=== PATIENT | male | born 1985 | race Caucasian/White ===

== ENCOUNTER 2017-06-07 18:55 | Emergency (ER) | payer MEDICAID ==
[~2017-06-07] VITALS: Ht 172.7 cm; Wt 89.1 kg
[2017-06-07 18:56] VITALS: Ht 172.7 cm; Wt 89.1 kg
[2017-06-07 19:11] VITALS: TEMP 99.9
[2017-06-07 19:25] LABS: BASOPHILS % 0.3 % (0.0-2.0); EOSINOPHILS % 0.1 % (0.0-7.0); HEMOGLOBIN 16.9 g/dl (14.0-18.0); LYMPHOCYTES # 2.5 10^3/ul (0.8-2.9); LYMPHOCYTES % 17.7 % (15.0-51.0); MEAN CORPUSCULAR HEMOGLOBIN 29.9 pg (29.0-33.0); MEAN CORPUSCULAR HGB CONC 35.2 g/dl (32.0-37.0); MEAN PLATELET VOLUME 10.6 fl (7.4-10.4); MONOCYTE # 1.4 10^3/ul (0.3-0.9); MONOCYTES % 9.6 % (0.0-11.0); NEUTROPHIL # 10.1 10^3/ul (1.6-7.5); NEUTROPHILS % 71.9 % (39.0-77.0); PLATELET COUNT 335 10^3/UL (140-415); RED BLOOD COUNT 5.65 10^6/ul (4.70-6.10); RED CELL DISTRIBUTION WIDTH 12.8 % (11.5-14.5); WHITE BLOOD COUNT 14.1 10^3/ul (4.8-10.8)
[2017-06-07] MEDS ORDERED: LORAZEPAM 2 MG INJ IV ONE (19:30)
[2017-06-07 19:42] LABS: INR 1.04; PARTIAL THROMBOPLASTIN TIME 27.5 Sec (25.0-35.0); PROTIME 13.6 Sec (12.2-14.2); PT RATIO 1.1
--- NOTE | 2017-06-07 19:43 | RADRPT ---
PROCEDURE: XR Chest AP portable CLINICAL INDICATION: Chest pain TECHNIQUE: An AP portable radiograph of the chest was submitted. COMPARISON: None. FINDINGS: Support Hardware: None Cardiovascular: The cardiovascular silhouette appears unremarkable. Lung Cadet: The lung cadet appear clear with no nodule, alveolar infiltrate, or interstitial promi nence evident. Pleural Spaces: No pneumothorax or pleural effusion is identified. Osseous Structures: The osseous structures appear intact. Soft Tissues: The soft tissues appear generous. IMPRESSION: Unremarkable portable chest. Physician Charlotte Date Time Electronically viewed and signed by Monica Orozco Physician on 06/07/2017 19:43 RH/
[2017-06-07 19:45] LABS: ANION GAP 26 (8-16); BLOOD UREA NITROGEN 15 mg/dl (7-20); CARBON DIOXIDE 21 mmol/L (21-31); CHLORIDE 101 mmol/L (97-110); CREATININE 1.21 mg/dl (0.61-1.24); GLUCOSE 157 mg/dl (70-220); POTASSIUM 3.2 mmol/L (3.5-5.1); SODIUM 145 mmol/L (135-144)
[2017-06-07 19:58] LABS: TROPONIN-I < 0.012 ng/ml (0.00-0.12)
[2017-06-07] MEDS ORDERED: POTASSIUM CHLORIDE (SR) 20 MEQ TAB PO STA (20:03)
--- NOTE | 2017-06-07 20:14 | ERD ---
ER Documentation Chief Complaint Date/Time DATE: 06/07/17 TIME: 20:12 Chief Complaint states he got stung by something c/o increase SOB HPI This is a 32-year-old male who presents to the emergency room for evaluation of shortness of breath. The patient states that he got stung by something and states that he is short of breath and is having numbness all over his body. The patient denies having any previous medical history was brought to the ER by his family for evaluation. ROS All systems reviewed and are negative except as per history of present illness. Physical Exam Vitals Vital Signs Date Time Temp Pulse Resp B/P Pulse Ox O2 Delivery O2 Flow Rate FiO2 06/07/17 19:46 108 28 155/108 100 Non Rebreather 15.0 06/07/17 19:11 99.9 118 26 165/97 100 Mask 06/07/17 19:05 Non Rebreather 15 06/07/17 19:05 Non Rebreather 15.0 06/07/17 18:56 98.7 128 32 179/109 99 Physical Exam INITIAL VITAL SIGNS: Reviewed by me GENERAL: The patient is well developed and appropriate for usual state of health in no apparent distress HEENT: Pupils equal, round, and reactive to light. EOMI. There is no scleral icterus. NECK: C-spine is soft and supple, there is no meningismus. There is no cervical lymphadenopathy. LUNGS: Clear to auscultation bilaterally. There are no rales, wheezes or rhonchi. HEART: Regular rate and rhythm, no murmurs, clicks, rubs or gallops. ABDOMEN: Soft, non-tender, non-distended. There are bowel sounds in all four quadrants. No rebound or guarding. EXTREMITIES: There is no peripheral cyanosis or edema. No focal swelling or erythema. NEUROLOGICAL: The patient moves all four extremities with 5/5 strength. Cranial nerves II - XII are intact. Normal gait. Alert and oriented SKIN: There is no apparent rash or petechiae. HEME/LYMPHATIC: There is no evidence of excessive bruising or lymphedema. PSYCHIATRIC: The patient appears extremely anxious and agitated Result Diagram: 06/07/17191406/07/171914 Results 24 hrs Laboratory Tests Test 06/07/17 19:15 White Blood Count 14.110^3/ul Red Blood Count 5.6510^6/ul Hemoglobin 16.9g/dl Hematocrit 48.0% Mean Corpuscular Volume 85.0fl Mean Corpuscular Hemoglobin 29.9pg Mean Corpuscular Hemoglobin Concent 35.2g/dl Red Cell Distribution Width 12.8% Platelet Count 31797^3/UL Mean Platelet Volume 10.6fl Neutrophils % 71.9% Lymphocytes % 17.7% Monocytes % 9.6% Eosinophils % 0.1% Basophils % 0.3% Nucleated Red Blood Cells % 0.0/100WBC Neutrophils # 10.110^3/ul Lymphocytes # 2.510^3/ul Monocytes # 1.410^3/ul Eosinophils # 0.010^3/ul Basophils # 0.010^3/ul Nucleated Red Blood Cells # 0.010^3/ul Prothrombin Time 13.6Sec Prothrombin Time Ratio 1.1 INR International Normalized Ratio 1.04 Activated Partial Thromboplast Time 27.5Sec Sodium Level 145mmol/L Potassium Level 3.2mmol/L Chloride Level 101mmol/L Carbon Dioxide Level 21mmol/L Anion Gap 26 Blood Urea Nitrogen 15mg/dl Creatinine 1.21mg/dl Glucose Level 157mg/dl Calcium Level 10.0mg/dl Troponin I < 0.012ng/ml Current Medications Medications (Trade) Dose Ordered Sig/Oscar Route PRN Reason Start Time Stop Time Status Last Admin Dose Admin Lorazepam (Ativan) 1 mg ONCE ONCE IV 06/07/17 19:30 06/07/17 19:31 DC 06/07/17 19:20 Potassium Chloride (Klor-Con 20) 40 meq ONCE STAT PO 06/07/17 20:03 06/07/17 20:04 UNV Procedures/MDM EKG: Rate/Rhythm: Sinus tachycardia QRS, ST, T-waves: [No changes consistent w/ acute ischemia] Impression: [No evidence of ischemia or arrhythmia] Chest X-ray 1V Interpreted by me: Soft Tissue: No acute abnormalities Bones: No acute abnormalities Mediastinum/Cardiac Silhouette/Lungs: [No acute abnormalities] This 32-year-old male presents to the ER for evaluation of shortness of breath. This patient is extremely anxious on my examination. The patient states that he thinks he was stung by something but does not know where. He is complaining of numbness in his hands and legs. The patient was hyperventilating. The patient was placed on a monitor. He was put on oxygen and was given 1 mg of Ativan. The patient had lab work done including an EKG which shows sinus tachycardia. His troponin is negative. Chest x-ray is clear. Upon my reevaluation this patient's heart rate is now 84 bpm. He is 100% on room air, no acute distress. I advised him to suffer from an anxiety attack. I instructed him that his paresthesias are likely secondary to hyperventilation, and the patient was found on potassium 3.1. He was given 40 mg once a potassium by mouth here in the emergency room. The patient will be discharged home at this time. Departure Diagnosis: Primary Impression: Shortness of breath Additional Impression: Anxiety attack Condition: Stable SAJAN ARIAS DO Jun 07, 2017 20:14
[2017-06-07] MEDS ORDERED: BEN25 PO (20:38)
[2017-06-07] MEDS ORDERED: METHYLPREDNISOLONE 125 MG INJ IV ONE (21:00)
[2017-06-07] MEDS ORDERED: DIPHENHYDRAMINE 50 MG INJ IV ONE (21:00)
[2017-06-07 21:21] VITALS: BP 145/91; PULSE 89; RESP 21
== END 2017-06-07 21:23 | disposition home or self-care (01) ==
LOC: E/R 18:55
DX: R06.02 Shortness of breath (principal); R40.2252 Coma scale, best verbal response, oriented, at arrival to emergency department; F41.9 Anxiety disorder, unspecified; R40.2142 Coma scale, eyes open, spontaneous, at arrival to emergency department; R40.2362 Coma scale, best motor response, obeys commands, at arrival to emergency department
CPT/HCPCS: 36415; 71010; 80048; 84484; 85025; 85610; 85730; 93005; 96374; 96375; J1200; J2060; J2930; Z7502; Z7610